=== PATIENT | female | born 1995 | race Caucasian/White ===

== ENCOUNTER 2016-10-28 03:34 | Emergency (ER) | payer OTHER ==
[2016-10-28 03:38] VITALS: BP 105/63
== END 2016-10-28 04:23 | disposition home or self-care (01) ==
LOC: ED 03:34
DX: K80.50 Calculus of bile duct without cholangitis or cholecystitis without obstruction (principal)

== ENCOUNTER 2016-11-21 19:39 | Emergency (ER) | payer OTHER ==
[2016-11-21 19:58] VITALS: BP 128/69
[2016-11-21 20:52] LABS: BASOPHIL % 0.4 % (0-2); PLATELET COUNT 190 x10^3mcL (130-400)
[2016-11-21 21:03] LABS: CALCIUM 8.9 mg/dL (8.5-10.1); CARBON DIOXIDE 29.3 mmol/L (21-32); CHLORIDE SERUM 109 mmol/L (98-107); CREATININE SERUM 0.7 mg/dL (0.6-1.0); GFR1 > 60 mL/min; GLUCOSE SERUM 111 mg/dL (74-106); POTASSIUM SERUM 3.9 mmol/L (3.5-5.1); SODIUM SERUM 141 mmol/L (136-145)
[2016-11-21 21:07] LABS: ALBUMIN 3.4 g/dL (3.4-5.0); ALKALINE PHOSPHATASE 138 U/L (46-116); ALT/SGPT 15 U/L (14-59); AMYLASE 65 U/L (25-115); AST/SGOT 19 U/L (15-37); BILIRUBIN TOTAL 0.4 mg/dL (0.20-1.00); LIPASE 180 IU/L (73-393); TOTAL PROTEIN, SERUM 7.1 g/dL (6.4-8.2)
== END 2016-11-21 22:10 | disposition left against medical advice (07) ==
LOC: ED 19:39
PROVIDERS: Emergency Medicine
DX: K80.50 Calculus of bile duct without cholangitis or cholecystitis without obstruction (principal); Z86.2 Personal history of diseases of the blood and blood-forming organs and certain disorders involving the immune mechanism
CPT/HCPCS: J1885; Q0092

== ENCOUNTER 2017-01-26 14:33 | Emergency (ER) | payer OTHER ==
[2017-01-26 14:45] VITALS: BP 115/75
== END 2017-01-26 16:38 | disposition home or self-care (01) ==
LOC: ED 14:33
DX: N61.0 Mastitis without abscess (principal)

== ENCOUNTER 2017-04-11 07:48 | Emergency (ER) | payer OTHER ==
[~2017-04-11] VITALS: Ht 165.1 cm; Wt 98.9 kg
[2017-04-11 08:09] VITALS: Ht 165.1 cm; Wt 98.9 kg
[2017-04-11 11:02] VITALS: BP 108/65
== END 2017-04-11 11:02 | disposition home or self-care (01) ==
LOC: ED 07:48
DX: K80.50 Calculus of bile duct without cholangitis or cholecystitis without obstruction (principal)
CPT/HCPCS: J1885; Q0162

== ENCOUNTER 2017-05-02 05:15 | Emergency (ER) | payer OTHER ==
[2017-05-02 07:26] LABS: UA SPECIFIC GRAVITY 1.025 (1.005-1.035); microscopic required? YES; urine erythrocyte 1+ (NEGATIVE)
[2017-05-02 08:12] LABS: BASOPHIL % 0.4 % (0-2); PLATELET COUNT 188 x10^3mcL (130-400)
[2017-05-02 08:15] LABS: RED CELL DISTRIBUTION WIDTH 15.1 % (11.5-14.5); rbc morphology (normal/abnorm) ABNORMAL (NORMAL)
[2017-05-02 08:18] LABS: CALCIUM 8.8 mg/dL (8.5-10.1); CARBON DIOXIDE 26.3 mmol/L (21-32); CHLORIDE SERUM 104 mmol/L (98-107); CREATININE SERUM 0.7 mg/dL (0.6-1.0); GFR1 > 60 mL/min; GLUCOSE SERUM 101 mg/dL (74-106); SODIUM SERUM 140 mmol/L (136-145)
[2017-05-02 08:22] LABS: ALKALINE PHOSPHATASE 106 U/L (46-116); ALT/SGPT 13 U/L (14-59); AST/SGOT 11 U/L (15-37); BILIRUBIN TOTAL 0.3 mg/dL (0.20-1.00); LIPASE 133 IU/L (73-393); TOTAL PROTEIN, SERUM 7.2 g/dL (6.4-8.2)
[2017-05-02 08:31] LABS: ALBUMIN 3.3 g/dL (3.4-5.0)
[2017-05-02 08:59] VITALS: BP 118/52
== END 2017-05-02 08:59 | disposition home or self-care (01) ==
LOC: ED 05:15
PROVIDERS: Emergency Medicine
DX: K80.20 Calculus of gallbladder without cholecystitis without obstruction (principal); K80.50 Calculus of bile duct without cholangitis or cholecystitis without obstruction; D64.9 Anemia, unspecified
CPT/HCPCS: J1885; J2405; Q0092

== ENCOUNTER 2017-07-16 07:20 | Emergency (ER) | payer OTHER ==
[~2017-07-16] VITALS: Ht 165.1 cm; Wt 103.9 kg
[2017-07-16 07:37] VITALS: BP 127/59; Ht 165.1 cm; Wt 103.9 kg
== END 2017-07-16 08:22 | disposition home or self-care (01) ==
LOC: ED 07:20
DX: H66.91 Otitis media, unspecified, right ear (principal)
CPT/HCPCS: J1885

== ENCOUNTER 2017-12-19 21:09 | Emergency (ER) | payer OTHER ==
[~2017-12-19] VITALS: Ht 165.1 cm; Wt 94.3 kg
[2017-12-19 21:32] VITALS: Ht 165.1 cm; Wt 94.3 kg
[2017-12-19 22:58] LABS: BASOPHIL % 0.3 % (0-2); PLATELET COUNT 234 x10^3mcL (130-400)
[2017-12-19 22:59] LABS: RED CELL DISTRIBUTION WIDTH 14.8 % (11.5-14.5)
[2017-12-19 23:00] LABS: CALCIUM 8.7 mg/dL (8.5-10.1); CARBON DIOXIDE 30.6 mmol/L (21-32); CHLORIDE SERUM 104 mmol/L (98-107); CREATININE SERUM 0.8 mg/dL (0.6-1.0); GFR1 > 60 mL/min; GLUCOSE SERUM 100 mg/dL (74-106); POTASSIUM SERUM 3.9 mmol/L (3.5-5.1); SODIUM SERUM 140 mmol/L (136-145)
[2017-12-19 23:05] LABS: ALBUMIN 3.6 g/dL (3.4-5.0); ALKALINE PHOSPHATASE 139 U/L (46-116); ALT/SGPT 39 U/L (14-59); AST/SGOT 142 U/L (15-37); BILIRUBIN TOTAL 0.9 mg/dL (0.20-1.00); LIPASE 141 IU/L (73-393); TOTAL PROTEIN, SERUM 7.8 g/dL (6.4-8.2)
[2017-12-20 01:01] VITALS: BP 121/68
== END 2017-12-20 01:01 | disposition home or self-care (01) ==
LOC: ED 21:09
PROVIDERS: Emergency Medicine
DX: K80.20 Calculus of gallbladder without cholecystitis without obstruction (principal); Z86.2 Personal history of diseases of the blood and blood-forming organs and certain disorders involving the immune mechanism
CPT/HCPCS: J2270; J2765; J7030; Q0092

== ENCOUNTER 2018-10-29 14:23 | Emergency (ER) | payer OTHER ==
[~2018-10-29] VITALS: Ht 165.1 cm; Wt 96.2 kg
[2018-10-29 14:53] VITALS: Ht 165.1 cm; Wt 96.2 kg
[2018-10-29 14:59] LABS: BASOPHIL % 0.2 % (0-2); PLATELET COUNT 179 x10^3mcL (130-400)
[2018-10-29 15:04] LABS: RED CELL DISTRIBUTION WIDTH 15.9 % (11.5-14.5)
[2018-10-29 15:13] LABS: UA SPECIFIC GRAVITY 1.025 (1.005-1.035); microscopic required? YES; urine erythrocyte 2+ (NEGATIVE)
[2018-10-29 17:56] VITALS: BP 109/60
== END 2018-10-29 17:56 | disposition home or self-care (01) ==
LOC: ED 14:23
PROVIDERS: Emergency Medicine
DX: O23.11 Infections of bladder in pregnancy, first trimester (principal); R10.32 Left lower quadrant pain; Z3A.14 14 weeks gestation of pregnancy
CPT/HCPCS: 36415; Q0092

== ENCOUNTER 2019-05-23 07:03 | Inpatient (IN) | payer OTHER ==
[~2019-05-23] VITALS: Ht 165.1 cm; Wt 101.2 kg
[2019-05-23 07:07] VITALS: Ht 165.1 cm; Wt 101.2 kg
[2019-05-23 07:52] LABS: BASOPHIL % 0.3 % (0-2); PLATELET COUNT 219 x10^3mcL (130-400)
[2019-05-23 08:11] LABS: RED CELL DISTRIBUTION WIDTH 15.4 % (11.5-14.5)
[2019-05-23 08:27] LABS: CALCIUM 8.7 mg/dL (8.5-10.1); CARBON DIOXIDE 25.9 mmol/L (21-32); CHLORIDE SERUM 107 mmol/L (98-107); CREATININE SERUM 0.8 mg/dL (0.6-1.0); GFR1 > 60 mL/min; GLUCOSE SERUM 107 mg/dL (74-106); POTASSIUM SERUM 3.7 mmol/L (3.5-5.1); SODIUM SERUM 143 mmol/L (136-145)
[2019-05-23 08:31] LABS: ALKALINE PHOSPHATASE 177 U/L (46-116); ALT/SGPT 45 U/L (14-59); AST/SGOT 140 U/L (15-37); BILIRUBIN TOTAL 0.4 mg/dL (0.20-1.00); LIPASE 190 IU/L (73-393); TOTAL PROTEIN, SERUM 7.1 g/dL (6.4-8.2)
[2019-05-23 08:33] LABS: ALBUMIN 3.1 g/dL (3.4-5.0)
--- NOTE | 2019-05-23 08:44 | NUR ---
PT SITTING IN BED COMFORTABLY NO DISTRESS. IVF INFUSING WITH NO PROBLEM. WARM BLANKETS PROVIDED PER PTS REQUEST AND FOR PTS COMFORT.
[2019-05-23 09:13] LABS: microscopic required? YES
[2019-05-23 09:14] LABS: urine erythrocyte 2+ (NEGATIVE)
--- NOTE | 2019-05-23 10:30 | NUR ---
POC AND TEST RESULTS DISCUSSED WITH PT BY DR PRASAD.
--- NOTE | 2019-05-23 11:33 | NUR ---
PT SITTING IN BED COMFORTABLY NO DISTRESS IVF INFUSING WITH NO PROBLEM. PT ASYMPTOMATIC WILL CONTINUE TO MONITOR
--- NOTE | 2019-05-23 12:03 | NUR ---
RECEIVED REPORT FROM RUTHANN CASEY IN ED. AWAITING PATIENT ARRIVAL TO FLOOR.
--- NOTE | 2019-05-23 12:09 | NUR ---
PT ARRIVED FROM ED ACCOMPANIED BY EMT TRANSPORTER. PT AMBULATED TO BED ALONE. GAIT STEADY. PT ON ROOM AIR. NO C/O SOB AND NO DISTRESS NOTED. VITALS TAKEN AND STABLE. FLUIDS RESMUED TO LAC. NO REDNESS OR PAIN NOTED AT IV SITE. ALL QUESTIONS AND CONCERNS ADDRESSED.
--- NOTE | 2019-05-23 12:11 | NUR ---
REPORT GIVEN TO LOBO CASEY. RESUMING CARE OF PT IN MED SURG FLOOR
[2019-05-23 13:05] LABS: CHOLESTEROL/HDL RATIO 3.3; MAGNESIUM 1.9 mg/dL (1.8-2.4)
[2019-05-23 13:19] VITALS: BP 108/54
--- NOTE | 2019-05-23 14:29 | NUR ---
REPORT GIVEN TO JUSTIN CASEY. ALL QUESTIONS AND CONCERNS ADDRESSED.
--- NOTE | 2019-05-23 14:46 | NUR ---
PATIENT TAKEN DOWN FOR PROCEDURE VIA GUERNEY. AWAITING PATIENT RETURN TO FLOOR.
--- NOTE | 2019-05-23 17:46 | NUR ---
RECEIVED REPORT FROM JUSTIN IN POST OP. PATIENT HAD LAP CHOLECYSTECTOMY W/ CHOLANGIOGRAM. PROCEDURE TOLERATED WELL. PATIENT TO ARRIVE TO FLOOR IN ABOUT THIRTY MINUTES. AWAITING PATIENT ARRIVAL.
--- NOTE | 2019-05-23 18:21 | NUR ---
PATIENT RETURNED TO FLOOR VIA GUERNEY ACCOMPANIED BY JUSTIN CASEY. PATIENT TRANSFERRED TO BED WITH THREE PERSON ASSIST. PT ON O2 3L NC. PT IS DROWSY BUT AROUSABLE AND ABLE TO FOLLOW COMMANDS. NO C/O PAIN. FLUIDS RESUMED NS @ 100 ML/HR TO LAC. INCISIONS X4 WITH ONE PUNCTURE TO ABDOMEN CLOSED WITH SUTURES AND DERMABOND. TELEPHONE MAINTAINER. NO DRAINAGE NOTED FROM SITES. VITALS TAKEN AND STABLE (SEE DOCUMENTATION). ALL QUESTIONS AND CONCERNS ADDRESSED.
--- NOTE | 2019-05-23 19:40 | NUR ---
RECEIVED BEDSIDE REPORT FROM CARMELA DIAMOND. PT A/A/O X 4, CALM, COOPERATIVE. PT W/ GENERALIZED WEAKNESS, HAS NOT AMBULATED, BURPED, PASSED GAS, OR HAD BM SINCE COMING INTO THE FLOOR S/P LAP/CHOLY @ 1813. LUNGS CTAB, CHEST RISING EVENLY, 3LNC, 96%, NO ACUTE RESPIRATORY DISTRESS NOTED. ABD ROUND, TENDERNESS ON PALPATION TO EPIGASTRIC AREA, HYPOACTIVE BOWEL SOUNDS, LAST BM 05/22/19. NOTED 4 SURGICAL INCISIONS AND 1 SURGICAL PUNCTURE WOUND W/ SUTURES AND DERMABOND, ALL CDI. IV SITE LAC 20G, CDI. SIDE RAILS UP X 2, BED IN LOW POSITION, CALL LIGHT WITHIN REACH. WILL CONTINUE TO MONITOR.
--- NOTE | 2019-05-23 19:42 | NUR ---
REPORT GIVEN TO APRIL CASEY. PATIENT RESTING IN BED REPORTING NAUSEA. ENDORSED TO APRIL THAT ZOFRAN WAS GIVEN JUST BEFORE PATIENT WAS BROUGHT BACK FROM OR. ALL QUESTIONS AND CONCERNS ADDRESSED.
[2019-05-23 21:23] VITALS: BP 122/73
--- NOTE | 2019-05-23 21:40 | NUR ---
PT IN BED, RESTING COMFORTABLY. NO ACUTE RESPIRATORY DISTRESS, PAIN, OR DISCOMFORT NOTED. SIDE RAILS UP X 2, BED IN LOW POSITION. WILL CONTINUE TO MONITOR.
--- NOTE | 2019-05-23 22:52 | NUR ---
REPORT RECEIVED FROM CARMELA CHEN. PATIENT WAS SEEN RESTING IN BED W/ EYES CLOSED. NO ACUTE DISTRESS NOTED. BREATHING E/U ON 3L NC. NO S/S OF PAIN NOTED. IVF INFUSING WELL. SAFETY MEAUSRES IN PLACE. CALL LIGHT IS WITHIN REACH. WILL CONTINUE TO MONITOR.
--- NOTE | 2019-05-24 00:01 | NUR ---
C/O CHEST PAIN 12/26 AND SOB W/ RIGTH RIB PAIN. ON 2L NC. O2 SAT ASSESSED; SATING AT 97%. DR NATION MADE AWARE OF CHEST PAIN. WAS GOING TO GIVEN TYLENOL PO PER PATIENT'S REQUEST, BUT PATIENT FELT NAUSEOUS. GAVE ZOFRAN IVP PRN. HAD 1 SMALL EMESIS. SAFETY MEASURES IN PLACE. WILL CONTINUE TO MONITOR.
--- NOTE | 2019-05-24 00:38 | NUR ---
CHECKED ON PATIENT. PATIENT STATED "I JUST FELL ASLEEP. I DON'T FEEL THE CHEST PAIN WHEN I'M ASLEEP." DENIES SOB. SAFETY MEASURES IN PLACE. WILL CONTINUE TO MONITOR.
--- NOTE | 2019-05-24 02:00 | NUR ---
SITTING UP IN BED REQUESTING NEW GOWN. 3 WEEKS AND LACTATING. GARO SYED, PROVIDED PATIENT WITH NEW GOWN, PAD, AND BRIEFS. DENIES PAIN. BREATHING E/U ON 2L NC. SAFETY MEASURES IN PLACE. CALL LIGHT IS WITHIN REACH. WILL CONTINUE TO MONITOR.
--- NOTE | 2019-05-24 03:49 | NUR ---
PATIENT RESTING IN BED W/ EYES CLOSED. NO ACUTE DISTRESS NOTED. BREATHING E/U ON 2L NC. NO S/S OF PAIN NOTED. IVF INFUSING WELL. SAFETY MEASURES IN PLACE. CALL LIGHT WITHIN REACH. REPORT GIVEN TO CARMELA VEGA, FOR CONTINUITY OF CARE.
--- NOTE | 2019-05-24 04:56 | NUR ---
Afebrile. No significant change in condition noted. Denies n/v. Pain controlled. (-)flatus/bm. In no apparent distress. Ambulated.
[2019-05-24 05:55] VITALS: BP 113/65
[2019-05-24 06:38] LABS: BASOPHIL % 0.1 % (0-2); PLATELET COUNT 216 x10^3mcL (130-400)
[2019-05-24 06:47] LABS: RED CELL DISTRIBUTION WIDTH 15.7 % (11.5-14.5)
[2019-05-24 07:15] LABS: CALCIUM 8.2 mg/dL (8.5-10.1); CHLORIDE SERUM 108 mmol/L (98-107); CREATININE SERUM 0.6 mg/dL (0.6-1.0); GFR1 > 60 mL/min; GLUCOSE SERUM 101 mg/dL (74-106); POTASSIUM SERUM 4.3 mmol/L (3.5-5.1); SODIUM SERUM 143 mmol/L (136-145)
--- NOTE | 2019-05-24 07:40 | NUR ---
RECEIVED PT FROM DOOR TO DOOR SALES REPRESENTATIVE, PT RESTING IN BED. ASSESSED AND DOCUMENTED. DENIES ANY PAIN. SAFTEY PRECAUTIONS ARE IN PLACE. WILL MONITOR.
[2019-05-24 09:07] VITALS: BP 113/51
--- NOTE | 2019-05-24 11:15 | NUR ---
PT RESTING IN BED COMFORTABLY, TOLERATED DIET WELL, AMBULATING WELL, DENIES ANY PAIN. I.S PROVIDED AND ENCOURAGED PT TO USE I.S. PT SAID SHE IS BURPING AND PASSING GAS WELL. STABLE. NO DISTRESS NOTED.
[2019-05-24 13:06] VITALS: BP 105/54
--- NOTE | 2019-05-24 13:30 | NUR ---
PT IS AWARE ABOUT SHE IS DISCHARGED, SHE SAID SHE IS CALLING FOR HER RIDE. PT IS STABLE, DENIES ANY PAIN. TOLERATED DIET WELL, PASSING GAS.
[2019-05-24 14:29] VITALS: BP 105/54
--- NOTE | 2019-05-24 15:30 | NUR ---
PT'S CAME TO PICK HER UP. DISCHARGE INSTRUCTIONS AND PRESCRIPTION GIVEN. PB SIGNED AND SENT WITH PT. IV REMOVED AND DRESSING APPLIED. CHECKED WITH PHARMACY REGARDING NORCO AND , PHARMACIST SAID NORCO MAY NOT SAFE FOR BREAST FEEDING BABY, INFORMED PT ABOUT THAT. PT SAID SHE MAY NOT TAKE NORCO, ONLY TYLENOL PO, IF SHE HAVE TO TAKE NORCO SHE IS NOT GOING TO BREAST FEED BABY. ALSO SHE SAID SHE WILL CHECK WITH OB AND SURGICAL INSTRUMENT MAKER. GARO WHEELED PT DOWN TO LOBBY ACCOMPANIED WITH HER , DC HOME.
== END 2019-05-24 15:38 | disposition home or self-care (01) | DRG 951 ==
LOC: ED 07:03 → MU 11:23
PROVIDERS: Emergency Medicine; Surgery; ADMIT Internal Medicine
PROC: BF121ZZ Fluoroscopy of Gallbladder using Low Osmolar Contrast (ICD-10-PCS; 2019-05-23)
PROC: 0FT44ZZ Resection of Gallbladder, Percutaneous Endoscopic Approach (ICD-10-PCS; principal; 2019-05-23 15:00)
DX: O99.63 Diseases of the digestive system complicating the puerperium (principal); K80.00 Calculus of gallbladder with acute cholecystitis without obstruction; E83.39 Other disorders of phosphorus metabolism; O99.285 Endocrine, nutritional and metabolic diseases complicating the puerperium
CPT/HCPCS: 94150; C1887; G0378; J0330; J1170; J1885; J2001; J2405; J2543; J2704; J2710; J3010; J3490; J7030; J7120; Q9967